=== PATIENT | male | born 1980 | race African-American/Black ===

== ENCOUNTER 2024-01-06 19:48 | Emergency (ER) | payer OTHER, MEDICAID ==
[~2024-01-06] VITALS: Ht 188 cm; Wt 127.3 kg
[2024-01-06 20:20] VITALS: TEMP 98
[2024-01-06] MEDS: OxyCODONE HCL/ACETAMINOPHEN 5-325 MG TABLET PO ONE (22:28)
[2024-01-06] MEDS: INDOMETHACIN 50 MG CAPSULE PO ONE (22:29)
[2024-01-06] MEDS ORDERED: INDO50CA97 PO (23:15)
[2024-01-06 23:21] VITALS: BP 132/82; PULSE 74; RESP 18
== END 2024-01-07 00:11 | disposition home or self-care (01) ==
LOC: EMS 19:48
DX: M10.9 Gout, unspecified (principal)
CPT/HCPCS: 84550; 99284

== ENCOUNTER 2024-02-23 22:08 | Emergency (ER) | payer MEDICAID, OTHER ==
[~2024-02-23] VITALS: Ht 188 cm; Wt 127.3 kg
[~2024-02-23 22:08] MED LIST: INDO50CA97 PO
[2024-02-23 22:50] LABS: BASOPHILS % (AUTO) 0.5 % (0.0-2.0); EOSINOPHILS % (AUTO) 0.8 % (1.0-6.0); HEMATOCRIT 46.9 % (41-53); HEMOGLOBIN 15.2 g/dL (13.5-17.5); LYMPHOCYTES # (AUTO) 2.2 K/uL (1.0-4.8); LYMPHOCYTES % (AUTO) 21.9 % (22.0-44.0); MEAN CORPUSCULAR HEMOGLOBIN 26.6 pg (26.0-34.0); MEAN CORPUSCULAR HGB CONC 32.5 G/dL (31.0-37.0); MEAN CORPUSCULAR VOLUME 82 fL (80-100); MONOCYTES # (AUTO) 1.1 K/uL (0.1-1.0); NEUTROPHILS # (AUTO) 6.6 K/uL (1.8-7.7); NEUTROPHILS % (AUTO) 65.8 % (40.0-70.0); PLATELET COUNT (AUTO) 204 K/uL (150-450); RED BLOOD CELL COUNT(AUTO) 5.72 MIL/uL (4.50-5.90); RED CELL DISTRIBUTION WIDTH 14.1 % (11.5-14.5); WHITE BLOOD COUNT (AUTO) 9.9 K/uL (4.5-11.0)
[2024-02-23 23:01] LABS: ANION GAP 6 mmol/L (8-16); CALCIUM, TOTAL 9.3 mg/dL (8.8-10.5); CARBON DIOXIDE 31 mmol/L (22-29); CHLORIDE 103 mmol/L (98-107); CREATININE 1.32 mg/dL (0.60-1.30); GLOMERULAR FILTR. RATE CALC > 60 mL/min (>60); GLUCOSE,RANDOM 100 mg/dL (70-110); POTASSIUM 4.2 mmol/L (3.5-5.1); SODIUM SERUM 140 mmol/L (136-145); UREA NITROGEN, BLOOD 15 mg/dL (7-18)
[2024-02-23 23:06] LABS: TROPONIN I-HIGH SENSITIVITY 4 ng/L (<76)
[2024-02-23 23:07] LABS: ALANINE AMINOTRANSFERASE 33 U/L (12-78); ALBUMIN 4.1 g/dL (3.4-5.0); ALKALINE PHOSPHATASE 98 U/L (46-116); ASPARTATE AMINOTRANSFERASE 13 U/L (15-37); BILIRUBIN,TOTAL 0.2 mg/dL (0.1-1.0); LIPASE 58 U/L (16-77); TOTAL PROTEIN, SERUM 8.4 g/dL (6.4-8.2)
[2024-02-23] MEDS: ONDANSETRON HCL 4 MG TABLET PO ONE (23:26)
[2024-02-24] MEDS: OMEPRAZOLE 20 MG CAPSULE PO ONE (00:11)
[2024-02-24 00:16] VITALS: BP 146/82; PULSE 77; RESP 16; TEMP 98.2
[2024-02-24] MEDS ORDERED: ACET-66 PO (00:56)
[2024-02-24] MEDS ORDERED: OMEP20 PO (00:56)
== END 2024-02-24 01:01 | disposition home or self-care (01) ==
LOC: EMS 22:08
DX: K29.70 Gastritis, unspecified, without bleeding (principal); B96.89 Other specified bacterial agents as the cause of diseases classified elsewhere; R07.89 Other chest pain; Z98.890 Other specified postprocedural states
CPT/HCPCS: 99285; 76705; 71045; 80053; 83690; 84484; 85025; 36415; 93005; Q0162

== ENCOUNTER → 2024-02-27 | Outpatient (CLI) | payer OTHER ==
[~2024-02-27] MED LIST changes: +ACET-66 PO; +OMEP20 PO
[2024-02-28 03:06] LABS: RUBELLA AB IGG-REFLAB 1.66 index (Immune >0.99)
[2024-02-28 07:07] LABS: RUBEOLA (MEASLES) IGG >300.0 AU/mL (Immune >16.4); VARICELLA ZOSTER IGG AB TITER 1089 index (Immune >165)
[2024-02-28 10:07] LABS: MUMPS VIRUS IGG ANTIBODY 9.4 AU/mL (Immune >10.9)
== END | disposition home or self-care (01) ==
LOC: LABMN 09:07
PROVIDERS: ATTEND Internal Medicine
DX: Z02.1 Encounter for pre-employment examination (principal)
CPT/HCPCS: 86706; 86735; 86762; 86765; 86787

== ENCOUNTER 2025-04-19 04:25 | Emergency (ER) | payer OTHER, MEDICAID ==
[~2025-04-19] VITALS: Ht 188 cm; Wt 125.0 kg
[~2025-04-19 04:25] MED LIST changes: +OMEP-148 PO; -OMEP20 PO
[2025-04-19 04:27] VITALS: BP 117/82; PULSE 85; RESP 17; TEMP 97.9; O2SAT 98
[2025-04-19] MEDS ORDERED: IBUP-1492 PO (04:50)
[2025-04-19] MEDS ORDERED: METH-659 PO (04:50)
[2025-04-19] MEDS ORDERED: LIDO-57 TP (04:50)
[2025-04-19] MEDS: LIDOCAINE 5% TRANSDERMAL PATCH TD ONE (04:54)
[2025-04-19] MEDS: KETOROLAC TROMETHAMINE 60 MG/2 ML VIAL IM ONE (04:54)
== END 2025-04-19 05:35 | disposition home or self-care (01) ==
LOC: EMS 04:27
DX: S39.012A Strain of muscle, fascia and tendon of lower back, initial encounter (principal); M10.9 Gout, unspecified; Z98.84 Bariatric surgery status; Z79.899 Other long term (current) drug therapy; X58.XXXA Exposure to other specified factors, initial encounter; Y93.89 Activity, other specified; Y92.89 Other specified places as the place of occurrence of the external cause; Y99.8 Other external cause status
CPT/HCPCS: 99283; 96372; J1885

== ENCOUNTER 2025-07-22 23:29 | Emergency (ER) | payer OTHER, MEDICAID ==
[~2025-07-22] VITALS: Ht 188 cm; Wt 120.5 kg
[~2025-07-22 23:29] MED LIST changes: +IBUP-1492 PO; +LIDO-57 TP; +METH-659 PO
[2025-07-22 23:32] VITALS: BP 129/78; PULSE 79; RESP 16; TEMP 97.7; O2SAT 100
[2025-07-22] MEDS ORDERED: INDO50CA97 PO (23:58)
[2025-07-22] MEDS ORDERED: COLC-3 PO (23:58)
[2025-07-22] MEDS ORDERED: ALLO-45 PO (23:58)
[2025-07-23] MEDS: DEXAMETHASONE SOD PHOS 4 MG/ML 5 ML VIAL IM ONE (00:09)
[2025-07-23] MEDS: KETOROLAC TROMETHAMINE 30 MG/ML VIAL IM ONE (00:09)
[2025-07-23] MEDS: COLCHICINE 0.6 MG TABLET PO ONE (00:09)
== END 2025-07-23 00:21 | disposition home or self-care (01) ==
LOC: EMS 23:30
DX: M19.072 Primary osteoarthritis, left ankle and foot (principal); M10.072 Idiopathic gout, left ankle and foot; Z98.84 Bariatric surgery status; Z79.899 Other long term (current) drug therapy
CPT/HCPCS: 99284; 96372; J1885; J1100